=== PATIENT | female | born 1980 | race Caucasian/White ===

== ENCOUNTER 2021-03-28 00:24 | Day surgery (SDC) | payer OTHER ==
[2021-03-28 00:43] VITALS: BMI 31.1
== END 2021-03-28 01:30 | disposition home or self-care (01) ==
LOC: CSHLD/OP 00:24
PROVIDERS: ATTEND Obstetrics & Gynecology
DX: O46.90 Antepartum hemorrhage, unspecified, unspecified trimester (principal); O09.529 Supervision of elderly multigravida, unspecified trimester; Z3A.00 Weeks of gestation of pregnancy not specified
CPT/HCPCS: 87480; 87510; 87660; 99284

== ENCOUNTER 2021-04-13 21:15 | Day surgery (SDC) | payer OTHER ==
[2021-04-13] MEDS ORDERED: hydrALAZINE 20 MG/ML VIAL SLOW IVP PRN (22:11)
[2021-04-13 23:29] LABS: Creatinine, Urine 120.35 mg/dL (47-110)
[2021-04-13 23:59] LABS: ALT (SGPT) 12 U/L (8-55); AST (SGOT) 17 U/L (5-34); Alkaline Phosphatase 218 U/L (40-110); Anion Gap 14 mmol/L (10-20); BUN (Urea Nitrogen) 10 mg/dL (7.0-18.7); Bilirubin, Total 0.3 mg/dL (0.2-1.2); Calc. Creatinine Clearance 0 mL/min (70-130); Carbon Dioxide 21 mmol/L (22-29); Chloride 105 mmol/L (98-107); Globulin 3.5 g/dL (2.4-3.5); Glucose 96 mg/dL (70-105); Potassium 4.2 mmol/L (3.5-5.1); Protein, Total 6.5 g/dL (6.0-8.3); Sodium 136 mmol/L (136-145)
[2021-04-14 00:29] LABS: #Eosinphils 0.1 10x3/uL (0.0-0.5); #Monocytes 0.5 10x3/uL (0.0-1.1); #Neutrophils 6.1 10x3/uL (1.5-8.4); %Basophils 0.1 % (0.0-2.0); %Eosinophils 1.5 % (0.0-6.0); %Lymphocytes 20.4 % (18.0-47.0); %Monocytes 6.2 % (0.0-10.0); %Neutrophils 71.4 % (40.0-75.0); Hemoglobin 10.3 g/dL (12.0-15.5); Mean Corpuscular HGB CONC 31.9 g/dL (32.0-36.0); Mean Corpuscular Hemoglobin 27.6 pg (27.0-33.0); Mean Corpuscular Volume 86.6 fl (81.6-98.3); Mean Platelet Volume 10.6 fl (7.4-10.4); Platelet Count 305 10x3/uL (150-450); RBC Distribution Width 14.3 % (11.5-14.5); Red Blood Cell (RBC) Count 3.73 10x6/uL (3.90-5.03); White Blood Cell (WBC) Count 8.5 10x3/uL (3.5-10.5)
== END 2021-04-14 02:50 | disposition home or self-care (01) ==
LOC: CSHLD/OP 21:15
PROVIDERS: ATTEND Obstetrics & Gynecology
DX: O47.1 False labor at or after 37 completed weeks of gestation (principal); O46.93 Antepartum hemorrhage, unspecified, third trimester; O09.523 Supervision of elderly multigravida, third trimester; Z3A.37 37 weeks gestation of pregnancy
CPT/HCPCS: 36415; 80053; 82570; 84156; 85025; 99284